=== PATIENT | female | born 1985 | race Caucasian/White ===

== ENCOUNTER → 2016-10-29 | Outpatient (CLI) | payer BC | LOC: KOH-I 09:00 | DX: R51 Headache (principal) | CPT/HCPCS: 70553; A9577 ==

== ENCOUNTER → 2020-10-29 | Outpatient (CLI) | payer BC ==
[~2020-10-29] MED LIST: IBUPROFEN800 MG PO
== END ==
LOC: KOH-I 09:30
DX: J32.9 Chronic sinusitis, unspecified (principal)
CPT/HCPCS: 70486

== ENCOUNTER → 2021-01-28 | Day surgery (SDC) | payer BC ==
[~2021-01-28] MED LIST changes: +DOXYCYCLINE MO100 MG PO; +IMITREX100 MG PO; +NORVASC5 MG PO; +PREDNISONE20 MG PO; +XYZAL5 MG PO
== END | disposition home or self-care (01) ==
LOC: OR 08:35
DX: J32.8 Other chronic sinusitis (principal); J34.2 Deviated nasal septum; I10 Essential (primary) hypertension; G43.909 Migraine, unspecified, not intractable, without status migrainosus; J32.9 Chronic sinusitis, unspecified; J34.3 Hypertrophy of nasal turbinates; Z88.1 Allergy status to other antibiotic agents
CPT/HCPCS: 84703; C1726; J0171; J1100; J1170; J1885; J2001; J2250; J2405; J2704; J2710; J2765; J3010; J7030; J7120